=== PATIENT | male | born 1990 | race Two or more races ===

== ENCOUNTER 2024-04-15 09:39 | Emergency (ER) | payer OTHER ==
[~2024-04-15] VITALS: Ht 167.6 cm; Wt 77.1 kg
[2024-04-15] MEDS ORDERED: DIPHENHYDRAMINE HCL 50 MG/ML VIAL 1ML IM STA (10:53)
== END 2024-04-15 11:35 | disposition home or self-care (01) ==
LOC: ER 09:40
DX: R21 Rash and other nonspecific skin eruption (principal)